=== PATIENT | male | born 1945 | race Caucasian/White ===

== ENCOUNTER → 2020-12-23 | Outpatient (CLI) | payer MEDICARE, OTHER ==
[~2020-12-23] MED LIST: ALBU18HF INH; ALOG6.25 PO; AMLO-211 PO; ASPI-963 PO; ATOR-2 PO; ATOR20TA37 PO; BUPROPION; CARV6.2512 PO; CARVEDILOL; CEFD300C37 PO; CHLO25TA PO; CLOP75TA PO; DOXY100T PO; ERGOCALCIFEROL; FINASTERIDE PO; FLUT1AER INH; FLUTICASONE NAS; FURO40TA6 PO; GABAPENTIN; HYDR-3341 PO; HYDRALAZINE PO; LEVO75TA PO; LEVOTHYROXINE; LOSA50TA2 PO; LOSARTAN PO; MELATONIN PO; PANTOPRAZOLE PO; POTA20TA6 PO; TAMS-11 PO; TRAZODONE PO
== END | disposition home or self-care (01) ==
LOC: CVU 09:16
PROVIDERS: ATTEND Internal Medicine Cardiovascular Disease
DX: Z01.810 Encounter for preprocedural cardiovascular examination (principal); I65.23 Occlusion and stenosis of bilateral carotid arteries; I25.10 Atherosclerotic heart disease of native coronary artery without angina pectoris; R06.02 Shortness of breath; I35.0 Nonrheumatic aortic (valve) stenosis; I70.0 Atherosclerosis of aorta
CPT/HCPCS: 71250; 74176; 93880; 93978